=== PATIENT | female | born 1995 | race Caucasian/White ===

== ENCOUNTER 2018-06-12 17:22 | Emergency (ER) | payer MEDICAID, OTHER ==
[2018-06-12 17:56] VITALS: BP 123/87
[2018-06-12] MEDS ORDERED: Naproxen TAB* 250 MG PO ONE (18:08)
--- NOTE | 2018-06-12 18:16 | UC ---
Shoulder Pain HPI - HPI Summary HPI Summary: 22 year old female with no significant pmhx here with right upper back pain/ shoulder pain. Reports symptoms started two days ago, spontaneously. No trauma that she recalls. However, today when she sneezed the pain worsened acutely. Sharp, worsened with movement. She reports history of years of swimming and bad shoulder for years. - History of Current Complaint Chief Complaint: UCBackPain Stated Complaint: RIB INJURY Time Seen by Provider: 06/12/18 17:59 Hx Last Menstrual Period: no period Onset/Duration: Sudden Onset Timing: Minutes - 10 Severity Initially: Mild Severity Currently: Severe Pain Intensity: 8 Character: Sharp Aggravating Factor(s): Movement, Internal Rotation Alleviating Factor(s): Rest Associated Signs And Symptoms: Negative: Swelling, Redness, Bruising, Fever, Weakness - Risk Factors Septic Arthritis Risk Factor: Negative - Allergies/Home Medications Allergies/Adverse Reactions: Allergies Allergy/AdvReac Type Severity Reaction Status Date / Time No Known Allergies Allergy Verified 06/12/18 17:47 Home Medications: Home Medications Dextroamphetamine/Amphetamine [Adderall 20 mg Tablet] 20 mg PO 1700 06/12/18 [ History Confirmed 06/12/18] Dextroamphetamine/Amphetamine [Adderall 20 mg Tablet] 40 mg PO DAILY 06/12/18 [ History Confirmed 06/12/18] PMH/Surg Hx/FS Hx/Imm Hx Previously Healthy: Yes - Surgical History Surgical History: None - Social History Alcohol Use: Daily Alcohol Amount: 2 drinks/ night Substance Use Type: Marijuana Substance Use Comment - Amount & Last Used: occasional Smoking Status (MU): Heavy Every Day Tobacco Smoker Type: Cigarettes Amount Used/How Often: 1 PP/ 2 days Length of Time of Smoking/Using Tobacco: 6 YEARS Have You Smoked in the Last Year: Yes When Did the Patient Quit Smoking/Using Tobacco: ONE WEEK - Immunization History Most Recent Influenza Vaccination: no Review of Systems All Other Systems Reviewed And Are Negative: Yes Constitutional: Positive: Negative Skin: Positive: Negative Eyes: Positive: Negative ENT: Positive: Negative Respiratory: Positive: Negative Cardiovascular: Positive: Negative Gastrointestinal: Positive: Negative Genitourinary: Positive: Negative Motor: Positive: Negative Neurovascular: Positive: Negative Musculoskeletal: Positive: Other: - shoulder discomfort Neurological: Positive: Negative Psychological: Positive: Negative Is Patient Immunocompromised?: Yes Physical Exam Triage Information Reviewed: Yes Appearance: Well-Appearing Vital Signs: Initial Vital Signs Temp 37.0 C 06/12/18 17:49 Pulse 90 06/12/18 17:49 Resp 18 06/12/18 17:49 BP 123/87 06/12/18 17:49 Pulse Ox 100 06/12/18 17:49 Eye Exam: Normal Neck exam: Normal Respiratory: Positive: Normal breath sounds, No respiratory distress, No accessory muscle use Cardiovascular Exam: Normal Abdominal Exam: Normal Musculoskeletal: Positive: ROM Limited @ - right shoulder with crepitus when ranging, Other: - TTP over medial aspect of trapezius muscle Pain worsened with ADDuction of shoulder Shoulder Course/Dx - Course Course Of Treatment: No concern for ACS/PE. Will do XR, NSAID and reassess - Differential Dx/Diagnosis Differential Diagnosis/HQI/PQRI: Contusion, Sprain, Strain, Tendonitis Provider Diagnosis: Shoulder pain, right, Tendonitis of shoulder, right Discharge - Sign-Out/Discharge Documenting (check all that apply): Patient Departure All imaging exams completed and their final reports reviewed: Yes - Discharge Plan Condition: Good Disposition: HOME Prescriptions: Lidocaine PATCH 5%* [Lidoderm 5% Patch*] 1 patch TRANSDERM DAILY #12 patch Naproxen [Naproxen 500 mg tab] 500 mg PO BID #20 tablet. Patient Education Materials: Tendinitis (ED) Referrals: No Primary Care Phys,NOPCP [Primary Care Provider] - Additional Instructions: Limit activity as tolerate to right shoulder - Billing Disposition and Condition Condition: GOOD Disposition: Home
== END 2018-06-12 19:22 | disposition home or self-care (01) ==
LOC: UCEAST 17:22
DX: M75.91 Shoulder lesion, unspecified, right shoulder (principal); F17.210 Nicotine dependence, cigarettes, uncomplicated
CPT/HCPCS: 71046; 99202; A9270-GY; G0463

== ENCOUNTER 2019-07-30 13:20 | Emergency (ER) | payer BC, OTHER ==
[2019-07-30 13:36] VITALS: BP 127/82
--- NOTE | 2019-07-30 13:49 | UC ---
Throat Pain/Nasal Manny HPI - HPI Summary HPI Summary: has had intermittent hoarseness for 4-6 weeks, no other symptoms until last 2 days she has developed a sore throat, no cough, fever or chills - History of Current Complaint Chief Complaint: UCGeneralIllness Stated Complaint: SORE THROAT Time Seen by Provider: 07/30/19 13:26 Hx Obtained From: Patient Hx Last Menstrual Period: no period ?: No Onset/Duration: Gradual Onset Severity: Moderate Pain Intensity: 4 - Allergies/Home Medications Allergies/Adverse Reactions: Allergies Allergy/AdvReac Type Severity Reaction Status Date / Time No Known Allergies Allergy Verified 07/30/19 13:36 Home Medications: Home Medications Levonorgestrel (Iud) [Mirena IUD] 20 mcg IU ONCE 07/30/19 [History Confirmed ] PMH/Surg Hx/FS Hx/Imm Hx Previously Healthy: Yes Psychological History: Other - ADHD - Surgical History Surgical History: None - Family History Known Family History: Positive: None - Social History Occupation: Employed Full-time Lives: With Family Alcohol Use: Weekly Alcohol Amount: 2 drinks/ night Substance Use Type: Marijuana Substance Use Comment - Amount & Last Used: occasional Smoking Status (MU): Heavy Every Day Tobacco Smoker Type: Cigarettes Amount Used/How Often: 1 PP/ 2 days Length of Time of Smoking/Using Tobacco: 6 YEARS Have You Smoked in the Last Year: Yes When Did the Patient Quit Smoking/Using Tobacco: ONE WEEK Cessation Counseling: Patient Advised to Stop - Immunization History Most Recent Influenza Vaccination: no Review of Systems All Other Systems Reviewed And Are Negative: Yes Constitutional: Positive: Negative Skin: Positive: Negative. Negative: Rash ENT: Positive: Sore Throat. Negative: Ear Ache, Sinus Congestion Respiratory: Positive: Negative. Negative: Cough Cardiovascular: Positive: Negative Neurological: Positive: Negative. Negative: Headache Psychological: Positive: Negative Is Patient Immunocompromised?: No Physical Exam Triage Information Reviewed: Yes Appearance: Well-Appearing, No Pain Distress, Well-Nourished Vital Signs: Initial Vital Signs Temp 99.4 F 07/30/19 13:32 Pulse 106 07/30/19 13:32 Resp 18 07/30/19 13:32 BP 127/82 07/30/19 13:32 Pulse Ox 100 07/30/19 13:32 Vital Signs Reviewed: Yes Eyes: Positive: Conjunctiva Clear ENT: Positive: Pharyngeal erythema, TMs normal, Hoarse voice. Negative: Nasal congestion Respiratory Exam: Normal Respiratory: Positive: Lungs clear Cardiovascular Exam: Normal Cardiovascular: Positive: RRR Neurological Exam: Normal Psychological Exam: Normal Skin Exam: Normal Skin: Negative: Rashes Throat Pain/Nasal Course/Dx - Differential Dx/Diagnosis Differential Diagnosis/HQI/PQRI: Laryngitis, Pharyngitis, Sinusitis, Tonsillitis , URI Provider Diagnosis: Pharyngitis Discharge ED - Sign-Out/Discharge Documenting (check all that apply): Patient Departure All imaging exams completed and their final reports reviewed: No Studies - Discharge Plan Condition: Good Disposition: HOME Patient Education Materials: Pharyngitis (ED) Forms: *Work Release Referrals: Cony FERNANDEZ,Cooper Chatterjee [Primary Care Provider] - 2 Days (if no better) [facility] [Outside] Additional Instructions: drink plenty of fluids use warm humidified air at bedside ibuprofen 600-800mg every 6-8hours for 3-5 days (take with food) Follow-up with physician referral if you need a local provider - Billing Disposition and Condition Condition: GOOD Disposition: Home
== END 2019-07-30 14:15 | disposition home or self-care (01) ==
LOC: UCEAST 13:20
DX: J02.9 Acute pharyngitis, unspecified (principal); F17.210 Nicotine dependence, cigarettes, uncomplicated
CPT/HCPCS: 87651; 99211; G0463

== ENCOUNTER 2019-10-18 13:53 | Emergency (ER) | payer BC ==
[2019-10-18 14:38] VITALS: BP 135/82
--- NOTE | 2019-10-18 14:47 | UC ---
Lower Extremity/Ankle HPI - HPI Summary HPI Summary: 24-year-old female presents with complaints of right ankle pain. States approximately 5:30 this morning she was getting out of bed, stepped wrong, and caused an inversion injury to the ankle. Complains of pain and swelling to the lateral aspect of the ankle. She has been unable to bear weight since the injury due to the pain. Has taken ibuprofen with some relief in the pain. Denies any numbness or tingling. - History of Current Complaint Chief Complaint: UCLowerExtremity Stated Complaint: ANKLE INJURY Time Seen by Provider: 10/18/19 13:55 Hx Obtained From: Patient Hx Last Menstrual Period: iud Pain Intensity: 6 - Allergies/Home Medications Allergies/Adverse Reactions: Allergies Allergy/AdvReac Type Severity Reaction Status Date / Time No Known Allergies Allergy Verified 10/18/19 14:15 Home Medications: Home Medications Dextroamphetamine/Amphetamine [Adderall 20 mg Tablet] 20 mg PO 1700 06/12/18 [ History Confirmed 10/18/19] Dextroamphetamine/Amphetamine [Adderall 20 mg Tablet] 40 mg PO DAILY 06/12/18 [ History Confirmed 10/18/19] Levonorgestrel (Iud) [Mirena IUD] 20 mcg IU ONCE 07/30/19 [History Confirmed 01/29] Blood Pressure 1 tab PO Q6HR 10/18/19 [History Confirmed 10/18/19] Naproxen Sodium [Aleve] 220 mg PO Q8HR 10/18/19 [History Confirmed 10/18/19] PMH/Surg Hx/FS Hx/Imm Hx Previously Healthy: Yes - Denies significant PMH - Surgical History Surgical History: None - Family History Family History: Denies significant FMH - Social History Occupation: Employed Full-time Lives: With Family Alcohol Use: Weekly Alcohol Amount: 2 drinks/ night Substance Use Type: None Substance Use Comment - Amount & Last Used: occasional Smoking Status (MU): Heavy Every Day Tobacco Smoker Type: Cigarettes Amount Used/How Often: 1 PP/ 2 days Length of Time of Smoking/Using Tobacco: 6 YEARS Have You Smoked in the Last Year: Yes When Did the Patient Quit Smoking/Using Tobacco: ONE WEEK - Immunization History Most Recent Influenza Vaccination: no Review of Systems All Other Systems Reviewed And Are Negative: Yes Constitutional: Positive: Negative Skin: Negative: Bruising Respiratory: Positive: Negative Cardiovascular: Positive: Negative Gastrointestinal: Positive: Negative Genitourinary: Positive: Negative Motor: Negative: Weakness Neurovascular: Negative: Decreased Sensation Musculoskeletal: Positive: Other: - See HPI Neurological/Mental Status: Positive: Negative Is Patient Immunocompromised?: No Physical Exam - Summary Physical Exam Summary: GENERAL APPEARANCE: Well developed, well nourished, alert and cooperative, and appears to be in no acute distress. CARDIAC: Normal S1 and S2. No S3, S4 or murmurs. Rhythm is regular. There is no peripheral edema, cyanosis or pallor. Extremities are warm and well perfused. Capillary refill is less than 2 seconds. Peripheral pulses intact. LUNGS: Clear to auscultation without rales, rhonchi, wheezing or diminished breath sounds. ABDOMEN: Positive bowel sounds. Soft, nondistended, nontender. No guarding or rebound. No masses or hepatosplenomegally. MUSKULOSKELETAL: Normal muscular development. Non-weight bearing. EXTREMITIES: Tenderness over the lateral joint line of the right ankle with moderate edema. No gross deformity or ecchymosis noted. ROM limited by pain. Circulation and sensation intact. SKIN: Skin normal color, texture and turgor with no lesions or eruptions. Triage Information Reviewed: Yes Vital Signs: Initial Vital Signs Temp 99.2 F 10/18/19 14:37 Pulse 112 10/18/19 14:37 Resp 16 10/18/19 14:37 BP 135/82 10/18/19 14:37 Pulse Ox 96 10/18/19 14:37 Vital Signs Reviewed: Yes Diagnostics - Radiology No standard instances Radiology Interpretation Completed By: Radiologist Summary of Radiographic Findings: Order Information: ANKLE RIGHT 3+VWS. INDICATION: Lateral right ankle pain and swelling after inversion injury COMPARISON: None. TECHNIQUE: 3 views of the right ankle were obtained. FINDINGS: There is soft tissue swelling overlying the fibular malleolus. The bones are normal alignment. Joint spaces appear maintained. No fracture is seen. IMPRESSION: SOFT TISSUE SWELLING OVERLYING THE FIBULAR MALLEOLUS WITHOUT RADIOGRAPHICALLY VISIBLE FRACTURE OR DISLOCATION. Lower Extremity Course/Dx - Course Course Of Treatment: 24-year-old female presents with complaints of right ankle pain. States approximately 5:30 this morning she was getting out of bed, stepped wrong, and caused an inversion injury to the ankle. Complains of pain and swelling to the lateral aspect of the ankle. She has been unable to bear weight since the injury due to the pain. Has taken ibuprofen with some relief in the pain. Denies any numbness or tingling. Afebrile. Mildly hypertensive and tachycardic otherwise vital signs stable. On exam patient had tenderness over the lateral joint line of the right ankle with moderate edema, no gross deformity or ecchymosis was noted, ROM was limited by pain, circulation and sensation were intact. X-ray showed no acute osseous injury. Reviewed results with the patient. She was placed in a Imtiaz wrap and gel splint by the RN. She was recommended modified weightbearing and was provided crutches with instructions. She was additionally recommended conservative treatment including [id number] analgesics and RICE. She is to follow-up with orthopedic surgery in 7 days if symptoms are not improving. Anticipatory guidance and warning symptoms were reviewed and the patient. Verbalized understanding and agrees with plan of care. - Differential Dx/Diagnosis Differential Diagnosis/HQI/PQRI: Contusion, Dislocation, Fracture (Closed), Sprain Provider Diagnosis: Right ankle sprain Discharge ED - Sign-Out/Discharge Documenting (check all that apply): Patient Departure All imaging exams completed and their final reports reviewed: Yes - Discharge Plan Condition: Stable Disposition: HOME Patient Education Materials: Ankle Sprain (ED), Crutch Instructions (ED), Ankle Stirrup Splint (ED) Referrals: Cony FERNANDEZ,Cooper Chatterjee [Primary Care Provider] - Coco Robles MD [Medical Doctor] - 5 Days (Follow up in 5-7 days if no improvement. Call for an appointment.) Additional Instructions: The x-ray performed in the clinic today showed no evidence of a fracture. I suspect acute have a sprain of the ankle. Rest the ankle as much as possible. You may walk and bear weight as tolerated. Use the crutches that were provided to you for modified weightbearing. Use the IMTIAZ wrap and stirrup splint that was applied in the clinic until you are pain free. Apply ice to the affected area for 15-20 minutes at least 4 times a day to help with the pain and swelling. Elevate the leg to help reduce swelling. Take acetaminophen (Tylenol) or ibuprofen (Advil, Motrin) according to directions as needed for pain. Follow up with orthopedic surgery in 5-7 days if symptoms do not improve. Seek immediate medical attention if you have severe pain not managed with pain medication, you are unable to walk or bear any weight, develop numbness or tingling in the foot or toes, or have any worsening of symptoms. - Billing Disposition and Condition Condition: STABLE Disposition: Home - Attestation Statements Provider Attestation: This patient was not seen by me. I was available for consult. Chart reviewed. EDWIN
== END 2019-10-18 15:13 | disposition home or self-care (01) ==
LOC: UCEAST 13:53
DX: S93.401A Sprain of unspecified ligament of right ankle, initial encounter (principal); X50.1XXA Overexertion from prolonged static or awkward postures, initial encounter; Y93.89 Activity, other specified; Y92.003 Bedroom of unspecified non-institutional (private) residence as the place of occurrence of the external cause; Z87.891 Personal history of nicotine dependence
CPT/HCPCS: 99213; G0463